=== PATIENT | male | born 1985 | race Caucasian/White ===

== ENCOUNTER → 2018-09-14 14:20 | Outpatient (CLI) | payer OTHER, SELFPAY ==
[2018-09-14 15:10] LABS: Basophils % 0.6 % (0.1-2.0); Eosinophils # 0.1 K/mm3 (0.0-0.4); Eosinophils % 1.1 % (0.1-12.0); Hematocrit 47.1 % (42.0-52.0); Hemoglobin 15.5 g/dL (14.1-18.0); Lymphocytes # 1.6 K/mm3 (0.7-4.5); Lymphocytes % 24.9 % (10-50); Mean Corpuscular HGB Conc 32.9 g/dL (31.8-35.4); Mean Corpuscular Hemoglobin 31.3 pg (27.0-31.2); Mean Corpuscular Volume 95.3 fl (80-94); Mean Platelet Volume 8.1 fl (7.4-10.4); Monocytes # 0.3 K/mm3 (0.1-1.0); Monocytes % 4.7 % (1.7-9.3); Neutrophils # 4.3 K/mm3 (1.8-7.8); Neutrophils % 68.7 % (37.0-80.0); Platelet Count 226 K/mm3 (142-424); Red Blood Count 4.94 M/mm3 (4.60-6.20); Red Cell Distribution Width 13.3 % (11.5-17.5); White Blood Count 6.2 K/mm3 (4.8-10.8)
[2018-09-14 16:17] LABS: Alanine Aminotransferase 48 U/L (12-78); Albumin Level 4.2 gm/dL (3.4-5.0); Albumin/Globulin Ratio 1.2 (1.1-1.8); Alkaline Phosphatase 75 U/L (46-116); Anion Gap 13.1 mEq/L (5-15); Aspartate Amino Transferase 33 U/L (15-37); Bilirubin,Direct 0.2 mg/dL (0.0-0.2); Bilirubin,Total 0.6 mg/dL (0.2-1.0); Blood Urea Nitrogen 11 mg/dL (7-18); Calcium 8.8 mg/dL (8.5-10.1); Carbon Dioxide 27 mmol/L (21.0-32.0); Chloride 105 mmol/L (98-107); Creatinine,Serum 0.89 mg/dL (0.70-1.30); Estimated Glomerular Filt Rate 100 ml/min (>60); Free Thyroxine Index 3.1 ug/dL (5.93-13.13); GFR (African American) 121 ML/MIN (>60); Globulin 3.5 gm/dl (1.3-3.2); Glucose 85 mg/dL (74-106); Potassium 4.1 mmoL/L (3.5-5.1); Sodium 141 mmol/L (136-145); T4 (Thyroxine) 9.1 ug/dl (4.7-13.3); Thyroid Stimulating Hormone 0.78 uIU/ml (0.358-3.740); Total Protein,Serum 7.7 gm/dL (6.4-8.2); Triiodothryronine (T3) Uptake 34 % (31-39)
[2018-09-17 10:34] LABS: HIV Screen 4th Generation wRfx Non Reactive (Non Reactive); Rapid Plasma Reagin Ab Titer Non Reactive (NonRea<1:1)
[2018-09-18 10:28] LABS: Neisseria gonorrhoeae, NAA Negative (Negative)
== END ==
PROVIDERS: Visit Provider Internal Medicine Adolescent Medicine
DX: Z11.3 Encounter for screening for infections with a predominantly sexual mode of transmission (principal); F33.1 Major depressive disorder, recurrent, moderate
CPT/HCPCS: 36415; 80053; 82248; 84436; 84443; 84479; 85025; 86592; 86703; 87491; 87591; G0432